=== PATIENT | female | born 1980 | race Caucasian/White ===

== ENCOUNTER 2020-02-15 09:28 | Outpatient (CLI) | payer BC ==
--- NOTE | 2020-02-15 10:36 | MMO ---
Bilateral MAMMO Bilat Diag [facility]. CLINICAL HISTORY: Patient is 39 years old and is seen for diagnostic exam and palpable abnormality in the left breast. The patient has the following family history of breast cancer: paternal grandmother, GREAT. The patient has no personal history of cancer. The patient has a history of left Ultrasound Guided Core Biopsy in 2012 - benign and bilateral Implants in 2010. VIEWS: The views performed were: bilateral craniocaudal; bilateral craniocaudal with tomosynthesis; bilateral mediolateral oblique; bilateral mediolateral oblique with tomosynthesis; bilateral mediolateral; bilateral mediolateral with tomosynthesis; and bilateral Implant displaced with tomosynthesis. FILMS COMPARED: The present examination has been compared to prior imaging studies performed at 02/15/2020. This study has been interpreted with the assistance of computer-aided detection. MAMMOGRAM FINDINGS: There are scattered fibroglandular densities. There is a mass at 1:00 left breast likely previously biopsied fibroadenoma. In the right breast, there are no suspicious masses, calcifications or areas of architectural distortion. IMPRESSION: FINDING IN THE LEFT BREAST IS PROBABLY BENIGN. FOLLOW-UP IN 6 MONTHS IS RECOMMENDED. THE RESULTS OF THIS EXAM WERE SENT TO THE PATIENT. ACR BI-RADS Category 3 - Probably benign finding - short interval follow-up suggested. [facility] will notify the patient of the need for additional imaging services. MAMMOGRAPHY NOTE: 1. A negative mammogram report should not delay a biopsy if a dominant of clinically suspicious mass is present. 2. Approximately 10% to 15% of breast cancers are not detected by mammography. 3. Adenosis and dense breasts may obscure an underlying neoplasm. Reported by: DANIELA TEMPLE MD Electonically Signed: [id number]
--- NOTE | 2020-02-15 10:53 | ULT ---
LIMITED LEFT BREAST ULTRASOUND: HISTORY: Palpable lump at the 1 o'clock position of the left breast which was biopsied and found to represent a fibroadenoma in 2012. FINDINGS: Correlation is made with mammograms on the same date. There are no previous exams for comparison. S onographic evaluation of the region of palpable concern at the 1 o'clock position of the left breast, 4 cm from the nipple, demonstrates a well-circumscribed somewhat lobulated nonshadowing solid-appear ing mass measuring 1.4 x 1.3 x 1.2 cm corresponding to the mammographic finding. This likely represe nts the palpable abnormality that was biopsied earlier. IMPRESSION: BIRADS category 3 - probably benign findings. Six-month followup is recommended. POS: OFF
== END 2020-02-15 09:29 | disposition home or self-care (01) ==
LOC: BICMAMMO 09:28
PROVIDERS: ATTEND Nurse Practitioner Family
DX: N63.20 Unspecified lump in the left breast, unspecified quadrant (principal)
CPT/HCPCS: 77066; G0279

== ENCOUNTER 2021-12-18 08:31 | Outpatient (CLI) | payer BC ==
[2021-12-18 09:51] LABS: BHCG - Serum Negative (NEGATIVE); Pregs Control Background? CLEAR/WHITE (CLR/WHITE); Pregs Control Bar Appear? YES (CONTROL BAR)
== END 2021-12-18 08:32 | disposition home or self-care (01) ==
LOC: CT 08:31
PROVIDERS: ATTEND Otolaryngology Plastic Surgery within the Head & Neck
DX: J39.2 Other diseases of pharynx (principal)
CPT/HCPCS: 36415; 70492; 84703